=== PATIENT | male | born 1985 | race Caucasian/White ===

== ENCOUNTER 2019-08-23 08:22 | Outpatient (REF) | payer MEDICAID, SELFPAY ==
[2019-08-23 22:22] LABS: Abs Immature Grans 0.07 k/cumm (0.0-0.09); Absolute Basophil Count 0.04 k/cumm (0.0-0.2); Absolute Eosinophil Count 0.24 k/cumm (0.0-0.7); Absolute Lymphocyte Count 2.35 k/cumm (1.2-3.4); Absolute Monocyte Count 0.99 k/cumm (0.11-0.7); Absolute Neutrophil Count 3.15 k/cumm (1.2-6.7); Basophils % 0.6; Eosinophils % 3.5; HCT 47.3 % (40.0-50.0); HGB 16.7 g/dL (13.5-17.5); Lymphocytes % 34.4; Mean Corp. HGB Concentration 35.3 g/dL (32.0-36.0); Mean Corpuscular Hemoglobin 33.8 pg (27.0-33.0); Mean Corpuscular Volume 95.7 fL (80-95); Mean Platelet Volume 11.3 fL (8.0-11.0); Monocytes % 14.5; Platelet Count 224 x1000/uL (130-400); RBC 4.94 m/cumm (4.50-6.00); RBC Distribution Width 12.4 % (11.8-14.1); White Blood Cell Count 6.84 k/cumm (4.4-10.8)
[2019-08-24 09:11] LABS: ALT 342 U/L (16-63); AST 376 U/L (15-37); Albumin 3.8 g/dL (3.4-5.0); Alkaline Phosphatase 69 U/L (46-116); Anion Gap 9.1 mmol/L (3-11); BUN 6 mg/dL (7-18); Bilirubin, Total 0.6 mg/dL (0.2-1.0); CO2 28.9 mmol/L (21.0-32.0); CREATININE 1.07 mg/dL (0.70-1.30); Calcium 8.9 mg/dL (8.5-10.1); Calculated LDL 119 mg/dL; Chloride 101 mmol/L (98-107); Cholesterol 208 mg/dL (50-200); Glucose 107 mg/dL (70-100); HDL Cholesterol 71 mg/dL (40-60); Magnesium 1.8 mg/dL (1.8-2.4); Potassium 4.1 mmol/L (3.5-5.1); Sodium 139 mmol/L (136-145); TSH (W/Ref FT4) 3.07 uIU/mL (0.36-3.74); Total Protein 7.6 g/dL (6.4-8.2); Triglyceride 91 mg/dL (30-150); Vitamin B12 814 pg/mL (193-986)
[2019-08-25 09:59] LABS: Folate >24.0 ng/ml
== END 2019-08-23 08:42 ==
LOC: NCHCN 08:22
PROVIDERS: Visit Provider Family Medicine
DX: F10.10 Alcohol abuse, uncomplicated (principal); M62.838 Other muscle spasm; M79.601 Pain in right arm; F17.210 Nicotine dependence, cigarettes, uncomplicated
CPT/HCPCS: 80053; 80061; 82607; 82746; 83735; 84443; 85025

== ENCOUNTER 2020-09-24 18:40 | Outpatient (REF) | payer MEDICAID, SELFPAY ==
[2020-09-24 21:17] LABS: Abs Immature Grans 0.13 10^3/uL (0.0-0.06); Absolute Basophil Count 0.05 10^3/uL (0.0-0.2); Absolute Eosinophil Count 0.14 10^3/uL (0.0-0.7); Absolute Lymphocyte Count 2.24 10^3/uL (1.2-3.4); Absolute Monocyte Count 1.01 10^3/uL (0.1-0.8); Basophils % 0.5; Eosinophils % 1.3; HCT 45.1 % (40.0-50.0); HGB 15.8 g/dL (13.5-17.5); Immature Grans % 1.2; Lymphocytes % 20.4; MCH 33.5 pg (27.0-33.0); MCV 95.8 fL (80-95); MPV 12.4 fL (8.0-11.0); Monocytes % 9.2; Neutrophils % 67.4; Nucleated RBC 0 %; Platelet Count 231 10^3/uL (130-400); RBC 4.71 10^6/uL (4.36-5.78); RDW 11.9 % (11.8-14.1); RDW-SD 41.6 fL; WBC 10.99 10^3/uL (4.4-10.8)
[2020-09-24 21:38] LABS: Absolute Neutrophil Count 7.41 10^3/uL (1.2-6.7)
[2020-09-24 21:44] LABS: ALT 38 U/L (16-63); Albumin 3.9 g/dL (3.4-5.0); Alkaline Phosphatase 60 U/L (46-116); Anion Gap 9.7 mmol/L (3-11); BUN 7 mg/dL (7-18); Bilirubin, Total 0.4 mg/dL (0.2-1.0); CO2 27.3 mmol/L (21.0-32.0); CREATININE 1.01 mg/dL (0.70-1.30); Calcium 8.9 mg/dL (8.5-10.1); Chloride 102 mmol/L (98-107); Cholesterol 184 mg/dL (<200); Glucose 102 mg/dL (74-106); HDL Cholesterol 36 mg/dL (40-60); Potassium 3.9 mmol/L (3.5-5.1); Sodium 139 mmol/L (136-145); Total Protein 7.6 g/dL (6.4-8.2); Triglyceride 453 mg/dL (<150)
[2020-09-24 22:00] LABS: AST 27 U/L (15-37)
[2020-09-24 22:02] LABS: LDL CHOLESTEROL 116 mg/dL (<100)
== END 2020-09-24 19:00 ==
LOC: NCHCN 18:40
PROVIDERS: Visit Provider Nurse Practitioner Family
DX: D75.89 Other specified diseases of blood and blood-forming organs (principal); Z13.220 Encounter for screening for lipoid disorders
CPT/HCPCS: 80053; 80061; 83721; 85025

== ENCOUNTER 2021-08-25 15:02 | Outpatient (REF) | payer MEDICAID, SELFPAY ==
[2021-08-25 15:40] LABS: HCT 50.5 % (40.0-50.0); HGB 17.5 g/dL (13.5-17.5); MCH 32.8 pg (27.0-33.0); MCHC 34.7 % (32.0-36.0); MCV 94.7 fL (80-95); MPV 12.1 fL (8.0-11.0); Platelet Count 210 10^3/uL (130-400); RBC 5.33 10^6/uL (4.36-5.78); RDW 11.8 % (11.8-14.1); WBC 8.97 10^3/uL (4.4-10.8)
[2021-08-25 16:02] LABS: ALT 39 U/L (16-63); AST 22 U/L (15-37); Albumin 3.7 g/dL (3.4-5.0); Alkaline Phosphatase 85 U/L (46-116); Anion Gap 7.4 mmol/L (3-11); BUN 7 mg/dL (7-18); Bilirubin, Total 0.3 mg/dL (0.2-1.0); CO2 29.6 mmol/L (21.0-32.0); Calcium 9.3 mg/dL (8.5-10.1); Calculated LDL 137 mg/dL (<100); Chloride 101 mmol/L (98-107); Cholesterol 197 mg/dL (<200); Glucose 90 mg/dL (74-106); HDL Cholesterol 43 mg/dL (40-60); Potassium 4.7 mmol/L (3.5-5.1); Sodium 138 mmol/L (136-145); Total Protein 7.5 g/dL (6.4-8.2); Triglyceride 85 mg/dL (<150)
== END 2021-08-25 15:03 | disposition home or self-care (01) ==
LOC: NCHCN 15:02
PROVIDERS: Visit Provider Nurse Practitioner Family
DX: F10.10 Alcohol abuse, uncomplicated (principal); E66.8 Other obesity; Z13.1 Encounter for screening for diabetes mellitus; Z00.00 Encounter for general adult medical examination without abnormal findings; E78.5 Hyperlipidemia, unspecified
CPT/HCPCS: 80053; 80061; 85027; 83036

== ENCOUNTER 2023-12-27 18:49 | Outpatient (REF) | payer MEDICAID, SELFPAY ==
[2023-12-27 14:58] LABS: ESR 5 mm/hr (0-15)
[2023-12-27 14:59] LABS: Abs Immature Grans 0.05 10^3/uL (0.0-0.06); Absolute Basophil Count 0.07 10^3/uL (0.0-0.2); Absolute Eosinophil Count 0.24 10^3/uL (0.0-0.7); Absolute Lymphocyte Count 1.62 10^3/uL (1.2-3.4); Absolute Monocyte Count 0.84 10^3/uL (0.1-0.8); Absolute Neutrophil Count 3.62 10^3/uL (1.2-6.7); Basophils % 1.1; Eosinophils % 3.7; HCT 48.2 % (40.0-50.0); HGB 16.4 g/dL (13.5-17.5); Immature Grans % 0.8; Lymphocytes % 25.2; MCV 94 fL (80-95); MPV 10.3 fL (8.0-11.0); Neutrophils % 56.2; Platelet Count 275 10^3/uL (130-400); RBC 5.13 10^6/uL (4.36-5.78); RDW 11.9 % (11.8-14.1); RDW-SD 41.6 fL; WBC 6.44 10^3/uL (4.4-10.8)
[2023-12-27 15:28] LABS: ALT 47 U/L (16-63); AST 46 U/L (15-37); Albumin 3.9 g/dL (3.4-5.0); Alkaline Phosphatase 92 U/L (46-116); Anion Gap 9.6 mmol/L (3-11); BUN 8 mg/dL (7-18); Bilirubin, Total 0.8 mg/dL (0.2-1.0); CO2 27.4 mmol/L (21.0-32.0); CREATININE 0.8 mg/dL (0.70-1.30); Calculated LDL 91 mg/dL (<100); Chloride 100 mmol/L (98-107); Cholesterol 193 mg/dL (<200); Estimated GFR 115.45 (mL/min/1.73m2); Glucose 119 mg/dL (74-106); HDL Cholesterol 88 mg/dL (40-60); Potassium 3.6 mmol/L (3.5-5.1); Sodium 137 mmol/L (136-145); TSH (W/Ref FT4) 1.82 uIU/mL (0.36-3.74); Triglyceride 70 mg/dL (<150)
[2023-12-27 16:31] LABS: C-Reactive Protein < 0.50 mg/dL (<or=0.5)
--- OUTSIDE RECORDS SUMMARY | 2023-12-27 18:51 | XMS_ITS | Continuity of Care Document ---
Author Name Unknown Organization [facility] Address [address] [place] [address] Care Team Providers Care Rehab Trainer Name Role Phone Randi Bolanos Primary Care Physician [facility] - 12/09/[address] [phone] Encounter Diagnosis Procedure and treatment not carried out due to patient leaving prior to being seen by health care provider(Final) - Discharge Disposition: Left Against Medical Advice Attending Physician: Rosalinda Burrows MD Admitting Physician: Rosalinda Burrows MD Allergies, Adverse Reactions, Alerts No Known Medication Allergies Functional Status 12/09/23 Family Member Travel History No recent t ravel Recent Travel History No recent travel Other exposure to Infectious Disease Non e Immunizations Given and Recorded Vaccine Date Status Refusal Reason SARS-CoV-2 (COVID-19) mRNA-1273 vaccine 04/02/21 R ecorded SARS-CoV-2 (COVID-19) mRNA-1273 vaccine 03/05/21 R ecorded Medications Abilify 0 Refill(s) Start Date: 09/25/23 Status: Ordered Depakote 0 Refill(s) Start Date: 09/25/23 Status: Ordered LORazepam 0.5 mg =, 0 Refill(s) Start Date: 12/09/23 Status: Ordered OLANZapine 0 Refill(s) Start Date: 09/25/23 Status: Ordered Vital Signs Most recent to oldest [Reference Range]: 1 Temperature Temporal Artery [36-38 Deg C ] 36.8 Deg C (12/09/23 3:04 PM) Heart Rate Monitored [60-100 bpm] 104 bp m *HI* (12/09/23 3:04 PM) Respiratory Rate [12-24 br/min] 18 br/mi n (12/09/23 3:04 PM) Blood Pressure [90-140/60-90 mmHg] 135/8 8mmHg (12/09/23 3:04 PM) Mean Arterial Pressure, Cuff [70-110 mmH g] 104 mmHg (12/09/23 3:04 PM) Weight Estimated 90.72 kg (12/09/23 3:04 PM) Body Mass Index Estimated 31.39 kg/m2 (12/09/23 3:04 PM) Height/Length Estimated 170 cm (12/09/23 3:04 PM) Social History Social History Type Response Tobacco Current everyday tob acco user Tobacco Use:. 1.5 PPD per day. Sex Male Patient Care team information Care Team Personnel Name: Randi Bolanos NP Position: No Access Member Role: Informed Provider Address: Address: [address] [place] [address] Care Team Related Persons Name: JOLENE CALLES Name: RANDI PALMA
--- OUTSIDE RECORDS SUMMARY | 2023-12-27 18:51 | XMS_ITS | Continuity of Care Document ---
Author Name Unknown Organization [facility] Address [address] [place] [address] Care Team Providers Care Budget Record Clerk Name Role Phone Randi Bolanos Primary Care Physician Encounter [facility] Date(s): 12/10/23 - 12/10/[address] [phone] Encounter Diagnosis Gastroenteritis(Discharge Diagnosis) - 12/10/23 Discharge Disposition: Home or Self Care Attending Physician: Juan Diego Kaiser MD Admitting Physician: Juan Diego Kaiser MD Allergies, Adverse Reactions, Alerts No Known Medication Allergies Assessment and Plan Extracted from: Title:ED Provider Note Author:Juan Diego Kaiser MD Date:12/10/23 Assessment/Plan 1.??Gastroenteritis??K52.9 Ordered: Discharge Patient, 12/10/23 8:30:00 EST, Home Independently, Constant Indicator ?? Patient Education Viral Gastroenteritis, Adult Follow Up With When Contact Information Randi Bolanos [employer]ENNEL MANAGER DOG TRACK Only if needed [address] [place] [phone] ?? Additional Instructions: Functional Status 12/10/23 Family Member Travel History No recent t [...] 0 Refill(s) Start Date: 09/25/23 Status: Ordered Mental Status 12/10/23 Eye Opening Response Sunday Spontaneous ly Best Verbal Response Sunday Oriented Best Motor Response Sunday Obeys comman ds Hines Coma Score 15 Vital Signs Most recent to oldest [Reference Range]: 1 Temperature Temporal Artery [36-38 Deg C ] 36.2 Deg C (12/10/23 8:12 AM) Peripheral Pulse Rate [60-100 bpm] 87 bp m (12/10/23 8:12 AM) Respiratory Rate [12-24 br/min] 18 br/mi n (12/10/23 8:12 AM) Blood Pressure [90-140/60-90 mmHg] 136/8 4mmHg (12/10/23 8:12 AM) Mean Arterial Pressure, Cuff [70-110 mmH g] 101 mmHg (12/10/23 8:12 AM) Weight Estimated 74 kg (12/10/23 8:12 AM) Body Mass Index Estimated 25.61 kg/m2 (12/10/23 8:12 AM) Height/Length Estimated 170 cm (12/10/23 8:12 AM) Social History Social History Type Response Tobacco Current everyday tob acco user Tobacco Use:. 1.5 PPD per day. Sex Male Hospital Discharge Instructions Patient Education 12/10/2023 07:30:12 Viral Gastroenteritis, Adult Viral Gastroenteritis, Adult Viral gastroenteritis is also known as the stomach flu. This condition may affect your stomach, small intestine, and large intestine. It can cause sudden watery diarrhea, fever, and vomiting. This condition is caused by many different viruses. These viruses can be passed from person to person very easily (are contagious). Diarrhea and vomiting can make you feel weak and cause you to become dehydrated. You may not be able to keep fluids down. Dehydration can make you tired and thirsty, cause you to have a dry mouth, and decrease how often you urinate. It is important to replace the fluids that you lose from diarrhea and vomiting. What are the causes? Gastroenteritis is caused by many viruses, including rotavirus and norovirus. Norovirus is the mostcommon cause in adults. You can get sick after being exposed to the viruses from other people. You can also get sick by: ??? Eating food, drinking water, or touching a surface contaminated with one of these viruses. ??? Sharing utensils or other personal items with an infected person. What increases the risk? You are more likely to develop this condition if you: ??? Have a weak body defense system (immune system). ??? Live with one or more children who are younger than 2 years. ??? Live in a long term. ??? Travel on cruise ships. What are the signs or symptoms? Symptoms of this condition start suddenly 1???3 days after exposure to a virus. Symptoms may last for a few days or for as long as a week. Common symptoms include watery diarrhea and vomiting. Other symptoms include: ??? Fever. ??? Headache. ??? Fatigue. ??? Pain in the abdomen. ??? Chills. ??? Weakness. ??? Nausea. ??? Muscle aches. ??? Loss of appetite. How is this diagnosed? This condition is diagnosed with a medical history and physical exam. You may also have a stool test to check for viruses or other infections. How is this treated? This condition typically goes away on its own. The focus of treatment is to prevent dehydration andrestore lost fluids (rehydration). This condition may be treated with: ??? An oral rehydration solution (ORS) to replace important salts and minerals (electrolytes) in your body. Take this if told by your health care provider. This is a drink that is sold at pharmacies and retail stores. ??? Medicines to help with your symptoms. ??? Probiotic supplements to reduce symptoms of diarrhea. ??? Fluids given through an IV, if dehydration is severe. Older adults and people with other diseases or a weak immune system are at higher risk for dehydration. Follow these instructions at home: Eating and drinking ??? Take an ORS as told by your health care provider. ??? Drink clear fluids in small amounts as you are able. Clear fluids include: ??? Water. ??? Ice chips. ??? Diluted fruit juice. ??? Low-calorie sports drinks. ??? Drink enough fluid to keep your urine pale yellow. ??? Eat small amounts of healthy foods every 3???4 hours as you are able. This may include whole grains, fruits, vegetables, lean meats, and yogurt. ??? Avoid fluids that contain a lot of sugar or caffeine, such as energy drinks, sports drinks, andsoda. ??? Avoid spicy or fatty foods. ??? Avoid alcohol. General instructions ??? Wash your hands often, especially after having diarrhea or vomiting. If soap and water are not available, use hand medart operator. ??? Make sure that all people in your household wash their hands well and often. ??? Take [id number]-tvg-[id number] and prescription medicines only as told by your health care provider. ??? Rest at home while you recover. ??? Watch your condition for any changes. ??? Take a warm bath to relieve any burning or pain from frequent diarrhea episodes. ??? Keep all follow-up visits. This is important. Contact a health care provider if you: ??? Cannot keep fluids down. ??? Have symptoms that get worse. ??? Have new symptoms. ??? Feel light-headed or dizzy. ??? Have muscle cramps. Get help right away if you: ??? Have chest pain. ??? Have trouble breathing or you are breathing very quickly. ??? Have a fast heartbeat. ??? Feel extremely weak or you faint. ??? Have a severe headache, a stiff neck, or both. ??? Have a rash. ??? Have severe pain, cramping, or bloating in your abdomen. ??? Have skin that feels cold and clammy. ??? Feel confused. ??? Have pain when you urinate. ??? Have signs of dehydration, such as: ??? Dark urine, very little urine, or no urine. ??? Cracked lips. ??? Dry mouth. ??? Sunken eyes. ??? Sleepiness. ??? Weakness. ??? Have signs of bleeding, such as: ??? Seeing blood in your vomit. ??? Having vomit that looks like coffee grounds. ??? Having bloody or black stools or stools that look like tar. These symptoms may be an emergency. Get help right away. Call 911. ??? Do not wait to see if the symptoms will go away. ??? Do not drive yourself to the hospital. Summary ??? Viral gastroenteritis is also known as the stomach flu. It can cause sudden watery diarrhea, fever, and vomiting. ??? This condition can be passed from person to person very easily (is contagious). ??? Take an oral rehydration solution (ORS) if told by your health care provider. This is a drink that is sold at pharmacies and retail stores. ??? Wash your hands often, especially after having diarrhea or vomiting. If soap and water are not available, use hand medart operator. This information is not intended to replace advice given to you by your health care provider. Make sure you discuss any questions you have with your health care provider. Document Revised: 08/24/2022 Document Reviewed: 08/24/2022 [employer] Patient Education ?? 2022 [employer]. Follow Up Care 12/10/2023 08:12:32 With:Randi Bolanos NP Address: [address] [place] [phone] When: only if needed Physician Emergency department Note * Juan Diego Kaiser MD: PERFORM Event Display: ED Note Physician Authored Date: [id number] BLANQUITA REDMAN :1985 Age:38 years Sex:Male Visit Date:12/10/2023 Primary Care Physician: Randi Bolanos NP Basic Information Time Seen: Juan Diego Kaiser MD / 12/10/2023 08:13 Chief Complaint Diarrhea, vomting and abdominal pain for over three days now. no one is sick around patient. PT appears inNAD on arrival, PWD. no CP. PT can keep sips of water down this morning History Of Present Illness: 38-year-old gentleman presents today reporting??stomach bug for the last 3 days or so.?? Symptomsconsisted of intermittent abdominal cramping, generalized but a little bit worse on the left,??vomiting, and some mild diarrhea. ??He states that over the last 24??hours symptoms do seem to be improving and he is tolerated some sips. ??He??denies any fevers or chills. ??No urinary symptoms. Review of Systems: As in HPI Physical Exam Vitals & Measurements T:??36.2?C ??(Temporal Artery)?? HR:??87??(Peripheral)?? RR:??18?? BP:??136/84?? SpO2:??98%?? HT:??170??cm?? WT:??74??kg??(Estimated)?? BMI:??25.61?? Pain Score:??6?? O2 Therapy:??Room air?? Vital signs and nursing notes reviewed ?? CONSTITUTIONAL: _ no acute distress SKIN: _Warm, dry, and intact without rash EYES: _extraocular movements are grossly intact, clear conjunctiva HENT: _Normocephalic, atraumatic, moist mucus membranes NECK: _no obvious swelling, normal range of motion PULMONARY: _normal chest rise and fall, lungs are clear bilaterally,??no respiratory distress or stridor CARDIOVASCULAR: _regular rate,??regular rhythm, distal extremities are warm and well perfused GASTROINTESTINAL: _nondistended, soft, no tenderness GENITOURINARY: _deferred NEUROLOGIC: _normal speech, moves all extremities with equal strength and coordination MUSCULOSKELETAL: _no gross deformities, atraumatic PSYCHIATRIC: _normal mood and affect ? Medical Decision Making: ? On my initial evaluation the patient appears generally well and non-toxic, they engage and answer questions appropriately, hemodynamically stable, no evidence of tachycardia, easy WOB with SpO2 saturation upper 90s to 100% on room air, afebrile by oral temperature.?? He reports improving symptoms.?? Abdomen is soft and nontender as noted above. ??Reviewed options for workup and??evaluation, patient indicates that he is feeling better and declines??laboratory testing or medication today. Declines??rx.??He indicates that??he does need a work note since he missed a couple days of work.?? He would like to go back today??but we will cover him??until tomorrow.?? He verbalized understanding and agreement Procedure No Qualifying Data Assessment/Plan 1.??Gastroenteritis??K52.9 Ordered: Discharge Patient, 12/10/23 8:30:00 EST, Home Independently, Constant Indicator ?? Patient Education Viral Gastroenteritis, Adult Follow Up With When Contact Information Randi Bolanos KENNEL MANAGER DOG TRACK Only if needed [address] [place] [phone] Additional Instructions: Medication Reconciliation Unchanged ARIPiprazole (Abilify) ?? divalproex sodium (Depakote) ?? LORazepam0.5 Milligrams. ?? OLANZapine Problem List/Past Medical History Ongoing Tobacco use Historical No qualifying data Allergies No Known Medication Allergies Social History Alcohol Current, Daily- Comments: 3 beers daily Electronic Cigarette/Vaping Electronic Cigarette Use: Never. Substance Use Never Tobacco Current everyday tobacco user Tobacco Use:. 1.5 PPD per day. Electronically Signed on 12/10/23 09:19 AM Juan Diego Kaiser MD Emergency department Discharge instructions * Juan Diego Kaiser MD: PERFORM Event Display: ED Discharge Information Authored Date: [id number] BLANQUITA REDMAN :1985 Age:38 years Sex:Male Visit Date:12/10/2023 Primary Care Physician: Randi Bolanos KENNEL MANAGER DOG TRACK Discharge Instructions We would like to thank you for allowing us to assist you with your healthcare needs. The following includes patient education materials and information regarding your injury/illness. Diagnosis from Today's Visit Gastroenteritis Discharge Vitals Temperature??(Temporal Artery) 97.2 ??F (36.2 ??C) Heart Rate??(Peripheral) 87 Respiratory Rate?? 18 Blood Pressure?? 136/84?? Height?? 66.93 in (170 cm) Weight??(Estimated) 163.17 lb (74 kg) BMI?? 25.61 Allergies No Known Medication Allergies What to Do Next Instructions from Your Care Team Follow-up with your regular doctor as needed. ??Return to the emergency department if you have any new or concerning symptoms including??if you start to have worsening??nausea, vomiting, diarrhea, ifyour abdomen starts to hurt??in??one specific area, you have fevers,??or if you have any other dena rns. You Need to Schedule the Following Appointments Follow Up with??Randi Bolanos NP When:??Only if needed Where: [address] [place] [phone] You were treated today on an emergency basis; it may be bella to contact your primary care provider to notify them of your visit today. You may have been referred to your regular doctor or a specialist, please follow up as instructed. If your condition worsens or you can't get in to see the doctor, contact the Emergency Department. Medications What How Much When Instructions Next Dose Unchanged ARIPiprazole (Abilify) Unchanged divalproex sodium (Depakote) Unchanged LORazepam 0.5 Milligrams Unchanged OLANZapine Education Materials Viral Gastroenteritis, Adult Viral gastroenteritis is also known as the stomach flu. This condition may affect your stomach, small intestine, and large intestine. It can cause sudden watery diarrhea, fever, and vomiting. This condition is caused by many different viruses. These viruses can be passed from person to person very easily (are contagious). Diarrhea and vomiting can make you feel weak and cause you to become dehydrated. You may not be able to keep fluids down. Dehydration can make you tired and thirsty, cause you to have a dry mouth, and decrease how often you urinate. It is important to replace the fluids that you lose from diarrhea and vomiting. What are the causes? Gastroenteritis is caused by many viruses, including rotavirus and norovirus. Norovirus is the mostcommon cause in adults. You can get sick after being exposed to the viruses from other people. You can also get sick by: ? Eating food, drinking water, or touching a surface contaminated with one of these viruses. ? Sharing utensils or other personal items with an infected person. What increases the risk? You are more likely to develop this condition if you: ? Have a weak body defense system (immune system). ? Live with one or more children who are younger than 2 years. ? Live in a long term. ? Travel on cruise ships. What are the signs or symptoms? Symptoms of this condition start suddenly 1???3 days after exposure to a virus. Symptoms may last for a few days or for as long as a week. Common symptoms include watery diarrhea and vomiting. Other symptoms include: ? Fever. ? Headache. ? Fatigue. ? Pain in the abdomen. ? Chills. ? Weakness. ? Nausea. ? Muscle aches. ? Loss of appetite. How is this diagnosed? This condition is diagnosed with a medical history and physical exam. You may also have a stool test to check for viruses or other infections. How is this treated? This condition typically goes away on its own. The focus of treatment is to prevent dehydration andrestore lost fluids (rehydration). This condition may be treated with: ? An oral rehydration solution (ORS) to replace important salts and minerals (electrolytes) in your body. Take this if told by your health care provider. This is a drink that is sold at pharmacies and retail stores. ? Medicines to help with your symptoms. ? Probiotic supplements to reduce symptoms of diarrhea. ? Fluids given through an IV, if dehydration is severe. Older adults and people with other diseases or a weak immune system are at higher risk for dehydration. Follow these instructions at home: Eating and drinking ? Take an ORS as told by your health care provider. ? Drink clear fluids in small amounts as you are able. Clear fluids include: ? Water. ? Ice chips. ? Diluted fruit juice. ? Low-calorie sports drinks. ? Drink enough fluid to keep your urine pale yellow. ? Eat small amounts of healthy foods every 3???4 hours as you are able. This may include whole grains, fruits, vegetables, lean meats, and yogurt. ? Avoid fluids that contain a lot of sugar or caffeine, such as energy drinks, sports drinks, and soda. ? Avoid spicy or fatty foods. ? Avoid alcohol. General instructions ? Wash your hands often, especially after having diarrhea or vomiting. If soap and water are not available, use hand medart operator. ? Make sure that all people in your household wash their hands well and often. ? Take bxze-mau-yixkdsh and prescription medicines only as told by your health care provider. ? Rest at home while you recover. ? Watch your condition for any changes. ? Take a warm bath to relieve any burning or pain from frequent diarrhea episodes. ? Keep all follow-up visits. This is important. Contact a health care provider if you: ? Cannot keep fluids down. ? Have symptoms that get worse. ? Have new symptoms. ? Feel light-headed or dizzy. ? Have muscle cramps. Get help right away if you: ? Have chest pain. ? Have trouble breathing or you are breathing very quickly. ? Have a fast heartbeat. ? Feel extremely weak or you faint. ? Have a severe headache, a stiff neck, or both. ? Have a rash. ? Have severe pain, cramping, or bloating in your abdomen. ? Have skin that feels cold and clammy. ? Feel confused. ? Have pain when you urinate. ? Have signs of dehydration, such as: ? Dark urine, very little urine, or no urine. ? Cracked lips. ? Dry mouth. ? Sunken eyes. ? Sleepiness. ? Weakness. ? Have signs of bleeding, such as: ? Seeing blood in your vomit. ? Having vomit that looks like coffee grounds. ? Having bloody or black stools or stools that look like tar. These symptoms may be an emergency. Get help right away. Call 911. ? Do not wait to see if the symptoms will go away. ? Do not drive yourself to the hospital. Summary ? Viral gastroenteritis is also known as the stomach flu. It can cause sudden watery diarrhea, fever,and vomiting. ? This condition can be passed from person to person very easily (is contagious). ? Take an oral rehydration solution (ORS) if told by your health care provider. This is a drink that is sold at pharmacies and retail stores. ? Wash your hands often, especially after having diarrhea or vomiting. If soap and water are not available, use hand medart operator. This information is not intended to replace advice given to you by your health care provider. Make sure you discuss any questions you have with your health care provider. Document Revised: 08/24/2022 Document Reviewed: 08/24/2022 [employer] Patient Education ?? 2022 [employer] Patient/Roller Printer Signature Patient Name:BLANQUITA REDMAN J I have received this information and my questions have been answered. Patient/Roller Printer Name: Patient/Roller Printer Signature: Relationship to Patient: Witness Name/Signature: Date: Electronically Signed on: 12/10/2023 08:31 ESTSigned by:REJI Discharge summary * Eloise Andersen: PERFORM Event Display: Discharge Summary Authored Date: [id number] Patient Care team information Care Team Personnel Name: Randi Bolanos NP Position: No Access Member Role: Informed Provider Address: Address: [address] [place] [address] Care Team Related Persons Name: JOLENE CALLES Name: RANDI PALMA
--- OUTSIDE RECORDS SUMMARY | 2023-12-27 18:51 | XMS_ITS | Continuity of Care Document ---
Author Name Unknown Organization [facility] Address [address] [place] [address] Encounter [facility] Date([facility]): 05/16/23 - 05/16/23 [facility] [address] [place] [address] Discharge Disposition: Home or Self Care Attending Physician: Jorje Fish MD Admitting Physician: Jorje Fish MD Allergies, Adverse Reactions, Alerts No Known Medication Allergies Functional Status 05/16/23 Family Member Travel History No recent t ravel Recent Travel History No recent travel Other exposure to Infectious Disease Non e Immunizations Given and Recorded Vaccine Date Status Refusal Reason SARS-CoV-2 (COVID-19) mRNA-1273 vaccine 04/02/21 R ecorded SARS-CoV-2 (COVID-19) mRNA-1273 vaccine 03/05/21 R ecorded Medications ondansetron 4 mg oral tablet 4 mg = 1 tab, Oral, every 8 hr, X 5 days, # 12 tab, 0 Refill(s), 05/21/23 13:35:00 EDT Start Date: 05/16/23 Stop Date: 05/21/23 Status: Ordered Mental Status 05/16/23 Eye Opening Response Sunday Spontaneous ly Best Verbal Response [place] Oriented Best Motor Response [place] Obeys comman ds [place] Coma Score 15 Vital Signs Most recent to oldest [Reference Range]: 1 Temperature Temporal Artery [36-38 Deg C ] 37.6 Deg C (05/16/23 1:18 PM) Peripheral Pulse Rate [60-100 bpm] 79 bp m (05/16/23 1:18 PM) Respiratory Rate [12-24 br/min] 19 br/mi n (05/16/23 1:18 PM) Blood Pressure [90-140/60-90 mmHg] 127/7 4mmHg (05/16/23 1:18 PM) Weight Dosing 90.00 kg (05/16/23 1:24 PM) Weight Estimated 90.00 kg (05/16/23 1:18 PM) Height/Length Dosing 170.000 cm (05/16/23 1:24 PM) Height/Length Estimated 170.000 cm (05/16/23 1:18 PM) Social History Social History Type Response Tobacco Current everyday tob acco user Tobacco Use:. Sex Male Physician Emergency department Note * Jorje Fish MD: PERFORM Event Display: ED Note Physician Authored Date: [id number] ЮЛИЯBLANQUITA :1985 Age:37 years Sex:Male Visit Date:05/16/2023 Basic Information Time Seen: Jorje Fish MD / 05/16/2023 13:27 Chief Complaint Brother has been sick, c/o general unwell feeling with associated n/v 16hrs, 3x emesis. Last BM yesterday. Was unable to to take PO yesterday. I just need one day of rest no PO intake today. VSS. Recent dental infection on abx History Of Present Illness: Presenting concern is vomiting. ??Time of onset is yesterday afternoon. ??Course is improving.?? Associated nausea. ??No diarrhea.?? Mild nausea.?? Brother has similar symptoms and has not improved.?? My reason for visit is work note Review of Systems: Negative for??fever, cardiovascular symptoms, pulmonary symptoms, urinary symptoms, hematologic symptoms, neurologic symptoms. Physical Exam Vitals & Measurements T:??37.6?C ??(Temporal Artery)?? HR:??79??(Peripheral)?? RR:??19?? BP:??127/74?? SpO2:??97%?? HT:??170.000??cm?? WT:??90.00??kg??(Estimated)?? Alert and oriented x3 converses normally establishes maintains eye contact. ??Respirations normal. ??Auscultation is normal. ??Abdominal palpation normal. Medical Decision Making: Problem complexity is minimal. ??Data complexity is minimal.?? Management risk are minimal. [facility] Procedure No Qualifying Data Assessment/Plan Ordered: ondansetron 4 mg oral tablet, 4 mg = 1 tab, Oral, every 8 hr, X 5 days, # 12 tab, 0 Refill(s), 05/21/23 13:35:00 EDT Diagnosis is vomiting. Medication Reconciliation New Prescription ondansetron (ondansetron 4 mg oral tablet)1 tab Oral (given by mouth) every 8 hours for 5 Days. Refills: 0. Problem List/Past Medical History Ongoing No qualifying data Historical No qualifying data Allergies No Known Medication Allergies Social History Electronic Cigarette/Vaping Electronic Cigarette Use: Never. Tobacco Current everyday tobacco user Tobacco Use:. Electronically Signed on 05/16/23 01:36 PM Jorje Fish MD Emergency department Discharge instructions * Jorje Fish MD: PERFORM Event Display: ED Discharge Information Authored Date: [id number] BLANUQITA REDMAN :1985 Age:37 years Sex:Male Visit Date:05/16/2023 Discharge Instructions We would like to thank you for allowing us to assist you with your healthcare needs. The following includes patient education materials and information regarding your injury/illness. Discharge Vitals Temperature??(Temporal Artery) 99.7 ??F (37.6 ??C) Heart Rate??(Peripheral) 79 Respiratory Rate?? 19 Blood Pressure?? 127/74?? Height?? 66.93 in (170.000 cm) Weight??(Estimated) 198.45 lb (90.00 kg) Allergies No Known Medication Allergies What to Do Next Instructions from Your Care Team 1 ondansetron up to 4 times per day as needed for nausea.?? Frequent small amounts of fluids??with salt and sugars??is encouraged.?? There should be gradual improvement. ?? Follow-up with primary care provider as needed. ?? Primarily, MD You were treated today on an emergency [...] What How Much When Instructions Next Dose New ondansetron (ondansetron 4 mg oral tablet) 1 tab Oral (given by mouth) Every 8 hours Duration: 5 Days Printed Prescription Patient/Motor Builder Assembler Signature Patient Name:BLANQUITA REDMAN I have received this information and my questions have been answered. Patient/Motor Builder Assembler Name: Patient/Motor Builder Assembler Signature: Relationship to Patient: Witness Name/Signature: Date: Electronically Signed on: 05/16/2023 13:36 EDTSigned by:[facility] Patient Care team information Care Team Personnel Name: Jorje Fish MD Position: Physician Member Role: ED Physician Address: Address: [address] [place] [id number] Care Team Related Persons Name: DEMETRIUS PALMA
--- OUTSIDE RECORDS SUMMARY | 2023-12-27 18:51 | XMS_ITS | Continuity of Care Document ---
Author Name Unknown Organization [facility] Address [address] [place] [address] Encounter [facility] Date(s): 10/10/23 - 10/10/23 [facility] [address] [place] [address] Encounter Diagnosis Ankle sprain(Discharge Diagnosis) - 10/10/23 Discharge Disposition: Home or Self Care Attending Physician: Juan Diego Kaiser MD Admitting Physician: Juan Diego Kaiser MD Allergies, Adverse Reactions, Alerts No Known Medication Allergies Immunizations Given and Recorded Vaccine Date Status Refusal Reason SARS-CoV-2 (COVID-19) mRNA-1273 vaccine 04/02/21 R ecorded SARS-CoV-2 (COVID-19) mRNA-1273 vaccine 03/05/21 R ecorded Medications Abilify 0 Refill(s) Start Date: 09/25/23 Status: Ordered Depakote 0 Refill(s) Start Date: 09/25/23 Status: Ordered ibuprofen 800 mg oral tablet 800 mg = 1 tab, Oral, every 8 hr, PRN as needed for pain, X 30 days, # 90 tab, 1 Refill(s), :03:00 AM MARKET RESEARCH SPECIALIST, [id number], 170, cm, 09/25/23 9:48:00 EST, Height, 76, kg, 09/25/23 9:48:00 EST, Weight Dosing Start Date: 09/25/23 Stop Date: 11/24/23 Status: Ordered OLANZapine 0 Refill(s) Start Date: 09/25/23 Status: Ordered Vital Signs Most recent to oldest [Reference Range]: 1 Temperature Oral [35.8-37.3 Deg C] 36 De g C (10/10/23 12:38 PM) Heart Rate Monitored [60-100 bpm] 87 bpm (10/10/23 12:38 PM) Blood Pressure [90-140/60-90 mmHg] 113/7 6mmHg (10/10/23 12:38 PM) Mean Arterial Pressure, Cuff [70-110 mmH g] 88 mmHg (10/10/23 12:38 PM) Weight Estimated 75.75 kg (10/10/23 12:38 PM) Body Mass Index Estimated 26.16 kg/m2 (10/10/23 12:38 PM) Height/Length Estimated 170.18 cm (10/10/23 12:38 PM) Social History Social History Type Response Tobacco Current everyday tob acco user Tobacco Use:. 1.5 PPD per day. Sex Male Physician Emergency department Note * Jorje Fish MD: PERFORM Event Display: ED Note Physician Authored Date: [id number] BLANQUITA REDMAN :1985 Age:37 years Sex:Male Visit Date:10/10/2023 Basic Information Time Seen: Jorje Fish MD / 10/10/2023 12:43 Chief Complaint Slipped last night around 11, twisted ankle and increased pain. Swelling noted with bruising. Difficulty walking History Of Present Illness: Presenting concern is ankle injury. ??Time of onset is 14 hours prior to admission. ??Mechanism of injury is slipped on the ice??with inversion??injury to right ankle. Review of Systems: .Negative for other injuries Physical Exam Vitals & Measurements T:??36?C ??(Oral)?? HR:??87??(Monitored)?? BP:??113/76?? SpO2:??99%?? HT:??170.18??cm?? WT:??75.75??kg??(Estimated)?? BMI:??26.16?? Pain Score:??5?? Painful to bear weight. ??Marked ecchymoses??over??lateral aspect right ankle.?? No gross deformity. Medical Decision Making: Problem complexity is low. ??Data complexity is low. ??Management risk are low. ??[facility] coding 35454. Procedure No Qualifying Data Assessment/Plan 1.??Ankle sprain??S93.409A Ordered: Crutches, 10/10/23 13:12:00 EST, Stop date 10/10/23 13:12:00 EST, Ankle sprain, 10/10/23 13:12:00 EST Discharge Patient, 10/10/23 13:13:00 EST, Home Independently, Constant Indicator ?? Orders: XR Ankle Complete 3+ Views Right, 10/10/23 12:49:00 EST, Stat, Reason: Trauma, Transport Mode: Stretcher, Exam to be performed outside organization? Medication Reconciliation Unchanged ARIPiprazole (Abilify) ?? divalproex sodium (Depakote) ?? ibuprofen (ibuprofen 800 mg oral tablet)1 tab Oral (given by mouth) every 8 hours as needed as needed for pain for 30 Days. Refills: 1. ?? OLANZapine Problem List/Past Medical History Ongoing Tobacco use Historical No qualifying data Allergies No Known Medication Allergies Social History Electronic Cigarette/Vaping Electronic Cigarette Use: Never. Tobacco Current everyday tobacco user Tobacco Use:. 1.5 PPD per day. Electronically Signed on 10/10/23 01:14 PM Jorje Fish MD Emergency department Discharge instructions * Jorje Fish MD: PERFORM Event Display: ED Discharge Information Authored Date: [id number] BLANQUITA REDMAN :1985 Age:37 years Sex:Male Visit Date:10/10/2023 Discharge Instructions We would like to thank you for allowing us to assist you with your healthcare needs. The following includes patient education materials and information regarding your injury/illness. Diagnosis from Today's Visit Ankle sprain Discharge Vitals Temperature??(Oral) 96.8 ??F (36 ??C) Heart Rate??(Monitored) 87 Blood Pressure?? 113/76?? Height?? 67.00 in (170.18 cm) Weight??(Estimated) 167.03 lb (75.75 kg) BMI?? 26.16 Allergies No Known Medication Allergies What to Do Next Instructions from Your Care Team There are no broken bones in your ankle. ??You have pulled the ligaments??without complete disruption of the ligaments, that hold your ankle together.?? Minimize??any weightbearing for 2 days. ??Elevate is much as possible. ??For pain you may take ibuprofen??600 mg with food up to 4 times per day and/or acetaminophen 1000 mg up to 4 times per day.?? After 2 days gradually resume??weightbearing. ??There should be gradual improvement. You were treated today on an emergency [...] ARIPiprazole (Abilify) Unchanged divalproex sodium (Depakote) Unchanged ibuprofen (ibuprofen 800 mg oral tablet) 1 tab Oral (given by mouth) Every 8 hours as needed for as needed for pain Duration: 30 Days Unchanged OLANZapine Patient/Fretted Instrument Inspector Signature Patient Name:BLANQUITA REDMAN J I have received this information and my questions have been answered. Patient/Fretted Instrument Inspector Name: Patient/Fretted Instrument Inspector Signature: Relationship to Patient: Witness Name/Signature: Date: Electronically Signed on: 10/10/2023 13:14 ESTSigned by:[facility] Jorje Cardenas MD: PERFORM Event Display: ED Discharge Information Authored Date: [id number] BLANQUITA REDMAN :1985 Age:37 years Sex:Male Visit Date:10/10/2023 Discharge Instructions We would like to thank you for allowing us to assist you with your healthcare needs. The following includes patient education materials and information regarding your injury/illness. Diagnosis from Today's Visit Ankle sprain Discharge Vitals Temperature??(Oral) 96.8 ??F (36 ??C) Heart Rate??(Monitored) 87 Blood Pressure?? 113/76?? Height?? 67.00 in (170.18 cm) Weight??(Estimated) 167.03 lb (75.75 kg) BMI?? 26.16 Allergies No Known Medication Allergies What to Do Next Instructions from Your Care Team There are no broken bones in your ankle. ??You have pulled the ligaments??without complete disruption of the ligaments, that hold your ankle together.?? Minimize??any weightbearing for 2 days. ??Elevate is much as possible. ??For pain you may take ibuprofen??600 mg with food up to 4 times per day and/or acetaminophen 1000 mg up to 4 times per day.?? After 2 days gradually resume??weightbearing. ??There should be gradual improvement. You were treated today on an emergency [...] ARIPiprazole (Abilify) Unchanged divalproex sodium (Depakote) Unchanged ibuprofen (ibuprofen 800 mg oral tablet) 1 tab Oral (given by mouth) Every 8 hours as needed for as needed for pain Duration: 30 Days Unchanged OLANZapine Patient/Fretted Instrument Inspector Signature Patient Name:BLANQUITA REDMAN I have received this information and my questions have been answered. Patient/Fretted Instrument Inspector Name: Patient/Fretted Instrument Inspector Signature: Relationship to Patient: Witness Name/Signature: Date: Electronically Signed on: 10/10/2023 13:13 ESTSigned by:[facility] Emergency department Note * Katie Hill: PERFORM Event Display: ED Notes Authored Date: * Katie Hill M: PERFORM Event Display: ED Notes Authored Date: [id number] Patient Care team information Care Team Personnel Name: Jeane Araiza RN Position: Nurse Member Role: ED Nurse Name: Jorje Fish MD Position: Physician Member Role: ED Physician Address: Address: [address] [place] [id number] Care Team Related Persons Name: JOLENE CALLES Name: DEMETRIUS PALMA
--- OUTSIDE RECORDS SUMMARY | 2023-12-27 18:51 | XMS_ITS | Continuity of Care Document ---
Author Name Unknown Organization [facility] Address [address] [place] [address] Encounter [facility] Date(s): 08/08/23 - 08/08/23 [facility] [address] [place] [address] Discharge Disposition: Left Without Being Seen Attending Physician: Jennifer Hall MD Admitting Physician: Jennifer Hall MD Allergies, Adverse Reactions, Alerts No Known Medication Allergies Immunizations Given and Recorded Vaccine Date Status Refusal Reason SARS-CoV-2 (COVID-19) mRNA-1273 vaccine 04/02/21 R ecorded SARS-CoV-2 (COVID-19) mRNA-1273 vaccine 03/05/21 R ecorded Social History Social History Type Response Tobacco Current everyday tob acco user Tobacco Use:. Sex Male Patient Care team information Care Team Related Persons Name: JOLENE CALLES Name: DEMETRIUS PALMA
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
[2023-12-28 08:43] LABS: HBs Antibody, Quant 3.6 mIU/mL (See Note); Hepatitis B Surface Ab Negative (See Note)
[2023-12-28 08:50] LABS: Hepatitis B Surface Ag Negative (Negative)
[2023-12-28 09:22] LABS: HIV-1/2 Ag & Ab Screen Negative (Negative)
[2023-12-28 09:25] LABS: Hep B Core Antibody Negative (Negative)
[2023-12-28 09:26] LABS: Hepatitis C Ab w Rflx HCV PCR Negative (Negative)
[2023-12-28 11:09] LABS: Syphilis Serology (RPR) Negative (Negative)
[2023-12-28 13:02] LABS: Chlamydia Result Negative (Negative); GC Result Negative (Negative)
== END 2023-12-27 18:50 | disposition home or self-care (01) ==
LOC: NCHCN 18:49
PROVIDERS: Referring Provider Registered Nurse; Visit Provider Registered Nurse
DX: Z11.3 Encounter for screening for infections with a predominantly sexual mode of transmission (principal); R63.4 Abnormal weight loss; F10.99 Alcohol use, unspecified with unspecified alcohol-induced disorder
CPT/HCPCS: 80053; 80061; 85652; 86704; 86706; 86803; 87340; 87389; 87491; 87591; 83036; 84443; 85025; 86140; 86592